=== PATIENT | female | born 1935 | race Caucasian/White ===

== ENCOUNTER → 2016-12-08 | Outpatient (REF) ==
[~2016-12-08] MED LIST: ACIDOPHILIS PO; ASPIRIN 81M81 MG/TA2 PO; ATIVAN2 MG PO; BETAPACE 80MG80 MG PO; COUMADIN 3MG3 MG/TAB PO; DESYREL 50MG50 MG PO; FLAGYL 500500 MG/100 IV; FLONASE NASAL S16 GM NS; IPRATROPIUM BROM3 M1 IH; K-DUR20 MEQ PO; LASIX 20MG TABL20 MG PO; LEXAPRO 10MG10 MG PO; PERFOROMIS20 MCG/2 M IH; PULMICORT0.5 MG/2 M IH; ROCEPHIN 2GM VIAL21 IV; VALIUM 2MG T2 MG/TAB PO; VIBRAMYCININJ IV
[2016-12-08 10:24] LABS: TOTAL IRON BINDING CAPACITY 411 ug/dL (265-497)
[2016-12-08 10:51] LABS: FERRITIN 102 ng/mL (11-264)
== END ==
LOC: ZLAB.WCH 09:27
PROVIDERS: Internal Medicine
DX: Z01.89 Encounter for other specified special examinations (principal)

== ENCOUNTER → 2017-02-25 | Outpatient (REF) | LOC: ZLAB.WCH 19:03 | DX: Z01.89 Encounter for other specified special examinations (principal) ==